=== PATIENT | female | born 1965 | race Caucasian/White ===

== ENCOUNTER 2023-11-06 08:08 | Emergency (ER) | payer BC, SELFPAY ==
[2023-11-06 08:10] VITALS: BP 161/95
[2023-11-06 08:21] VITALS: BMI 24.1
[2023-11-06 08:22] VITALS: BP 155/83
--- NOTE | 2023-11-06 08:40 | ED.GENMED ---
Addendum entered and electronically signed by Nikki Zhang PA-C 11/09/23 08:51:
urine culture klebsiella
senstiive to ceftazidime
on cefdinir, similar class, no treatment change.
Original Note:
History of Present Illness
General
Chief Complaint: Rectal Bleeding
Source: patient
Exam Limitations: none
Time Seen by Provider: 11/06/23 08:17
Travel History
Have you had any contact with someone who has COVID-19?: No
Do you have any symptoms of coronavirus? Fever > 100 degrees, chills, cough, shortness of breath, sore throat, loss of taste or smell, muscle aches, or headache?: No
History of Present Illness
History of Present Illness:
58-year-old female with history of hypertension and ruk-ngierwv-abfahhlwx diabetes presents with bright red blood per rectum today. She had to do separate episodes of moving her bowels. She denies any dark or black stool. No nausea vomiting or
abdominal pain. No fever. No other complaints at this time. She is not
Phy Exam
Physical Exam
Physical Exam:
General: Well-appearing female no acute respiratory distress
HEENT: Normocephalic atraumatic
Heart: Regular rate and rhythm no murmurs
Lungs: Clear to auscultation bilaterally no wheezing
Abdomen: Soft nontender nondistended no guarding rebound normal bowel sound
Rectal exam: This was performed with female mixer tender, Nurse Dale, in the room. This does provide a small hemorrhoid anteriorly with a fissure noted in the anus. This is hyperemic but not actively bleeding. The stool is brown in color and
heme-negative otherwise.
Extremities: No cyanosis
Course
Orders/Labs/Results
Orders:
Orders
11/06/23 09:01
Complete Blood Count/With Diff Urgent
Comprehensive Metabolic Panel Urgent
11/06/23 11:04
Urinalysis Reflex To Culture Urgent
Date Specimen was Collected: 11/06/23
Time Specimen was Collected: 11:03
Urine Microscopic Reflex Cult Urgent
Urine Culture Urgent
WARD Source: U
Specimen Description:
Date Specimen was Collected: 11/06/23
Time Specimen was Collected: 11:03
Abnormal Lab Results
11/06/23 11/06/23
09:01 11:04
RBC 3.49 L 10^6/uL
(4.20-5.40)
Hct 35.2 L %
(37.0-47.0)
MCV 100.9 H fL
(81.0-99.0)
MCH 34.7 H pg
(27.0-31.0)
Absolute Neuts (auto) 6.7 H 10^3/uL
(1.4-6.5)
Absolute Lymphs (auto) 0.6 L 10^3/uL
(1.2-3.4)
Neutrophils % 83.3 H %
(42.2-75.2)
Lymphocytes % 7.6 L %
(20.5-51.1)
Carbon Dioxide 31 H mmol/L
(22-30)
BUN 19 H mg/dl
(7-17)
Glucose 110 H mg/dl
(70-99)
Urine Ketones 2+ A
(Negative)
Ur Occult Blood Reflex 4+ A
(Negative)
Leukocyte Esterase Rfl 1+ A
(Negative)
Urine RBC 3-6 A /HPF
(0-2)
Urine WBC (Reflex) 11-15 A /HPF
(0-5)
Urine Bacteria (Reflex) Moderate A
(Negative)
11/06/23 09:01
11/06/23 09:01
Vital Signs
Initial and Last Documented VS:
Initial Vital Signs
Temp Pulse Resp BP Pulse Ox
98.0 F 95 16 161/95 96
11/06/23 08:10 11/06/23 08:10 11/06/23 08:10 11/06/23 08:10 11/06/23 08:10
Last Documented Vital Signs
Temp Pulse Resp BP Pulse Ox
98.0 F 88 18 154/73 96
11/06/23 08:10 11/06/23 11:10 11/06/23 11:10 11/06/23 11:10 11/06/23 11:10
MDM/Problems Addressed
Differential Diagnosis Includes:
Rectal bleeding. Consider hemorrhoid versus fissure versus diverticular bleed. Patient states he feels somewhat off and lightheaded. Will check labs. Do not suspect anemia from this described blood loss. Second episode of bowel movement today
was much less bleeding than the first. Vital signs are stable. Will check labs. If negative and given benign abdominal exam consider treatment with topical medication for hemorrhoid and have her follow-up. Patient has never had a colonoscopy and
discussed reasons for follow-up for this
*Critical Care Note
Total Time (30-74mins, 75-104mins- exclusive of procedures): Not Applicable
Update Note
Update Note:
Patient has urinated since coming here and has urinated twice only without having a bowel movement and did pass some blood while urinating. Urinalysis shows 4+ blood with 12-15 white blood cells and moderate bacteria. Will treat for cystitis.
Recommend Omnicef. Stable for discharge. Patient with a vomiting allergy for amoxicillin
ED Attending Note
-
Portions of this chart may have been created with voice recognition software.� Occasional wrong word or��sound alike� substitutions may have occurred due to the inherent limitations of voice recognition software.
Discharge Plan
Departure
Patient Disposition: Home (Routine Discharge)
Date of Disposition: 11/06/23
Time of Disposition: 12:03
Patient with high blood pressure during this ER visit?: No
Discharge Problem:
Cystitis
Instructions: Acute Cystitis (DC)
Prescriptions:
New
cefdinir 300 mg capsule
300 mg PO BID Qty: 14 0RF
No Action
alendronate [Fosamax] 70 mg Tablet
70 mg PO AMIN
metformin 1,000 mg Tablet
1,000 mg PO BID
lisinopril 10 mg Tablet
10 mg PO DAILY
ascorbic acid (vitamin C) [Vitamin C] 500 mg Tablet
500 mg PO DAILY
Hair,Skin and Nails Tablet
1 tab PO DAILY
berberine-herbal comb no.18 Capsule
1 cap PO DAILY
hawthorn 250 mg Capsule
300 mg PO DAILY
cholecalciferol (vitamin D3) [Vitamin D3] 25 mcg (1,000 unit) Tablet
25 mcg PO DAILY
alpha lipoic acid 300 mg Capsule
300 mg PO DAILY
calcium citrate-vitamin D3 [Citracal + D Maximum] 315 mg-6.25 mcg (250 unit) Tablet
1 tab PO DAILY
[facility] 3 billion cell Capsule
1 cap PO DAILY
Referrals:
Cezar Kruse MD [Family Provider] -
Activity Restrictions/Additional Instructions:
Drink plenty fluids. Use antibiotic as directed. Return here for worsening symptoms otherwise follow-up with family doctor for recheck of urinalysis
Interventions
Interventions:
*Risk Screen - Suicide Last Done: 11/06/23 08:10
*General Assessment Last Done: 11/06/23 11:10
*Neglect/Abuse Screening Last Done: 11/06/23 08:21
ED- Fall Risk Assessment Last Done: 11/06/23 08:24
*ED COVID-19 Vaccine History Last Done: 11/06/23 08:10
KM-Mgfbvs-Lwbncoxgdt Assessment Last Done: 11/06/23 08:23
ED- Cardiac Assessment Last Done: 11/06/23 08:29
ED- Pulmonary Assessment Last Done: 11/06/23 08:29
[2023-11-06 09:00] VITALS: BP 135/70
[2023-11-06 09:10] LABS: % Basophils 0.6 % (0-2); % Immature Granulocytes 0.4 % (0-0.5); % Lymphocytes 7.6 % (20.5-51.1); % Monocytes 7.1 % (1.7-9.3); % Neutrophils 83.3 % (42.2-75.2); Absolute Basophils 0.1 10^3/uL (0-0.2); Absolute Eosinophils 0.1 10^3/uL (0-0.7); Absolute Lymphocytes 0.6 10^3/uL (1.2-3.4); Absolute Monocytes 0.6 10^3/uL (0.1-0.6); Absolute Neutrophils 6.7 10^3/uL (1.4-6.5); Hematocrit 35.2 % (37.0-47.0); Hemoglobin 12.1 g/dL (12.0-16.0); Mean Corp Hgb Conc. 34.4 g/dL (33.0-37.0); Mean Corpuscular Hgb 34.7 pg (27.0-31.0); Mean Corpuscular Volume 100.9 fL (81.0-99.0); Mean Platelet Volume 9.2 fL (7.4-10.4); Nucleated Red Blood Cells % 0 %; Platelet Count 357 10^3/uL (130-400); Red Blood Cell Count 3.49 10^6/uL (4.20-5.40); Red Cell Dist. Width 11.9 % (11.5-14.5)
[2023-11-06 09:24] LABS: Sodium 138 mmol/L (135-145)
[2023-11-06 09:25] LABS: ALT (SGPT) 17 U/L (0-35); AST (SGOT) 25 U/L (14-36); Alkaline Phosphatase 58 U/L (38-126); Blood Urea Nitrogen 19 mg/dl (7-17); Calcium 10.1 mg/dl (8.4-10.2); Carbon Dioxide 31 mmol/L (22-30); Chloride 100 mmol/L (98-107); Estimated Creatinine Clearance 87 ml/min; Glucose 110 mg/dl (70-99); Potassium 4.7 mmol/L (3.5-5.1); Total Bilirubin 0.7 mg/dl (0.2-1.3); Total Protein 6.5 g/dl (6.3-8.2); eGFR > 60.00
[2023-11-06 10:00] VITALS: BP 144/86
[2023-11-06 11:10] VITALS: BP 154/73
[2023-11-06 11:10] LABS: Urine Albumin Trace (Neg - Trace); Urine Bilirubin Negative (Negative); Urine Character Clear (Clear); Urine Color Yellow; Urine Glucose Negative (Negative); Urine Ketone 2+ (Negative); Urine Leukocyte 1+ (Negative); Urine Nitrite Negative (Negative); Urine Occult Blood 4+ (Negative); Urine Urobilinogen Negative (Neg - 1+)
[2023-11-06 11:20] LABS: Urine Bacteria Moderate (Negative)
== END 2023-11-06 12:10 | disposition home or self-care (01) ==
LOC: EMR 08:08
PROVIDERS: Physician Assistant; EMERGENCY PHYSICIAN Emergency Medicine; FAMILY PHYSICIAN Family Medicine
DX: N30.90 Cystitis, unspecified without hematuria (principal); K62.5 Hemorrhage of anus and rectum
CPT/HCPCS: 99283; 80053; 81003; 81015; 85025; 87077; 87086; 87186

== ENCOUNTER → 2024-05-06 14:54 | Outpatient (REF) | payer BC, SELFPAY | LOC: HWWDC 14:54 | PROVIDERS: ATTENDING PHYSICIAN Family Medicine | DX: Z12.31 Encounter for screening mammogram for malignant neoplasm of breast (principal) | CPT/HCPCS: 77063; 77067 ==

== ENCOUNTER 2024-06-23 06:23 | Day surgery (SDC) | payer BC, SELFPAY ==
[2024-06-18 10:35] LABS: Hematocrit 38.2 % (37.0-47.0); Hemoglobin 13.1 g/dL (12.0-16.0); Mean Corp Hgb Conc. 34.3 g/dL (33.0-37.0); Mean Corpuscular Hgb 34.7 pg (27.0-31.0); Mean Corpuscular Volume 101.1 fL (81.0-99.0); Mean Platelet Volume 10.2 fL (7.4-10.4); Platelet Count 349 10^3/uL (130-400); Red Blood Cell Count 3.78 10^6/uL (4.20-5.40); Red Cell Dist. Width 11.9 % (11.5-14.5); White Blood Cell Count 4.9 10^3/uL (4.8-10.8)
[2024-06-18 11:15] LABS: Blood Urea Nitrogen 19 mg/dl (7-17); Calcium 9.7 mg/dl (8.4-10.2); Carbon Dioxide 30 mmol/L (22-30); Chloride 99 mmol/L (98-107); Estimated Creatinine Clearance 71 ml/min; Glucose 72 mg/dl (70-99); Potassium 4.1 mmol/L (3.5-5.1); Sodium 142 mmol/L (135-145); eGFR > 60.00
[2024-06-23] VITALS (12 sets, daily range): BP systolic 109–126; BP diastolic 46–72
[2024-06-23 07:00] LABS: Glucose - Point of Care 85 mg/dl (70-99)
[2024-06-23] MEDS: NORMOSOL-R/PLASMALYTE-A 1000 IV (07:00)
[2024-06-23] MEDS: HEPARIN 5000 UNITS SC (07:00)
[2024-06-23] MEDS: Pyridium 200 MG PO (07:00)
[2024-06-23 09:05] LABS: Glucose - Point of Care 100 mg/dl (70-99)
[2024-06-23 11:02] LABS: Glucose - Point of Care 123 mg/dl (70-99)
[2024-06-23 12:27] LABS: Glucose - Point of Care 111 mg/dl (70-99)
== END 2024-06-23 13:46 | disposition home or self-care (01) ==
LOC: SDS 06:23
PROVIDERS: ATTENDING PHYSICIAN Obstetrics & Gynecology; FAMILY PHYSICIAN Family Medicine
DX: N81.2 Incomplete uterovaginal prolapse (principal); N39.3 Stress incontinence (female) (male); N36.41 Hypermobility of urethra; D25.9 Leiomyoma of uterus, unspecified; N80.102 Endometriosis of left ovary, unspecified depth
CPT/HCPCS: 57425; 58542; 57250; 57288; 88305; 80048; 82962; 85027; 86850; 86900; 86901; 88341; 88342; 93005; C1763; C1771; J1580

== ENCOUNTER → 2024-10-23 09:25 | Outpatient (REF) | payer BC, SELFPAY ==
[2024-10-23 09:56] LABS: Body Fluid Mononuclear 60.5 %; Body Fluid Polymorphonuclear 39.5 %; Body Fluid WBC 1403 /CUMM
[2024-10-23 09:57] LABS: Body Fluid Second Tech ASW
== END ==
LOC: REG 09:25
PROVIDERS: ATTENDING PHYSICIAN Orthopaedic Surgery; FAMILY PHYSICIAN Family Medicine
DX: Z96.651 Presence of right artificial knee joint (principal)
CPT/HCPCS: 87015; 87070; 87205; 89051

== ENCOUNTER → 2025-06-21 12:21 | Outpatient (REF) | payer BC, SELFPAY | LOC: HWWDC 12:21 | PROVIDERS: ATTENDING PHYSICIAN Family Medicine | DX: Z12.31 Encounter for screening mammogram for malignant neoplasm of breast (principal) | CPT/HCPCS: 77063; 77067 ==